=== PATIENT | female | born 1985 | race Two or more races ===

== ENCOUNTER 2018-05-01 15:25 | Emergency (ER) | payer MEDICAID ==
[~2018-05-01] VITALS: Ht 165.1 cm; Wt 68.0 kg
[2018-05-01 15:44] VITALS: BP 120/64
== END 2018-05-01 16:18 | disposition home or self-care (01) ==
LOC: ER 15:25
DX: B00.1 Herpesviral vesicular dermatitis (principal)

== ENCOUNTER 2021-05-30 21:28 | Emergency (ER) | payer MEDICAID ==
[~2021-05-30] VITALS: Ht 162.6 cm; Wt 63.5 kg
[2021-05-30 21:29] VITALS: BP 121/49
== END 2021-05-31 01:34 | disposition left against medical advice (07) ==
LOC: ER 21:32
DX: R05.9 Cough, unspecified (principal); R09.89 Other specified symptoms and signs involving the circulatory and respiratory systems; Z53.21 Procedure and treatment not carried out due to patient leaving prior to being seen by health care provider